=== PATIENT | female | born 1975 | race African-American/Black ===

== ENCOUNTER 2021-05-05 16:36 | Inpatient (IN) | payer MEDICAID ==
[~2021-05-05] VITALS: Ht 170.2 cm; Wt 149.7 kg
[~2021-05-05 16:36] MED LIST: ativan; motrin
[2021-05-05] MEDS ORDERED: MAGNESIUM/ALUMINUM HYDROXIDE/SIMETHICONE 30ML UDC PO STA (19:12)
[2021-05-05] MEDS ORDERED: VISCOUS LIDOCAINE 2% 15 ML UDC PO STA (19:12)
[2021-05-05] MEDS ORDERED: ONDANSETRON HCL 4MG/2ML INJ IV STA (19:12)
[2021-05-05] MEDS ORDERED: SODIUM CHLORIDE 0.9% 1,000 ML IV ONE (19:15)
[2021-05-05 19:26] LABS: CLARITY URINE CLOUDY (CLEAR); COLOR URINE YELLOW (YELLOW); KETONES URINE TRACE (NEGATIVE); LEUKOCYTE ESTERASE URINE 3+ (NEGATIVE); NITRITE URINE NEGATIVE (NEGATIVE); OCCULT BLOOD URINE TRACE (NEGATIVE); PROTEIN URINE TRACE (NEGATIVE); SPECIFIC GRAVITY URINE 1.019 (1.005-1.030); UROBILINOGEN URINE 0.2 E.U./dL (0.2-1.0)
[2021-05-05] MEDS ORDERED: ONDANSETRON 4MG ODT PO ONE (20:00)
[2021-05-05 20:06] LABS: BASOPHILS % 0.2 % (0.0-2.0); EOSINOPHILS % 2.3 % (0.0-5.0); HEMATOCRIT. 35.4 % (36.0-48.0); HEMOGLOBIN. 11.7 g/dL (12.0-16.0); LYMPHOCYTES % 15.3 % (20.0-50.0); MEAN CORPUSCULAR HEMOGLOBIN 30.3 pg (28.0-32.0); MEAN CORPUSCULAR VOLUME 91.7 fL (81.0-99.0); MEAN PLATELET VOLUME 7.2 fl (7.4-10.4); MONOCYTES % 5.9 % (2.0-8.0); NEUTROPHILS % 76.3 % (40.0-76.0); PLATELET 216 x1000/uL (130-400); RED BLOOD CELL COUNT 3.86 mill/uL (4.2-5.4); RED CELL DISTRIBUTION WIDTH 15.2 % (11.6-14.6)
[2021-05-05 20:14] LABS: CHLORIDE 105 mEq/L (98-107)
[2021-05-05] MEDS ORDERED: KETOROLAC 15MG/ML VIAL IM NR (20:30)
[2021-05-05] MEDS ORDERED: CEFTRIAXONE 2 G PREMIX 50 ML IV NR (21:00)
[2021-05-06] MEDS ORDERED: MORPHINE SULFATE 4 MG/ML CPJ (NOT FOR IM USE) IV ONE
[2021-05-06] MEDS ORDERED: HYDROCODONE/ACETAMINOPHEN 5/325MG TABLET PO ONE (00:45)
[2021-05-06] MEDS ORDERED: NALOXONE HCL 0.4MG/ML VIAL IV PRN (02:45)
[2021-05-06] MEDS ORDERED: DIPHENHYDRAMINE 50MG/ML VIAL IV PRN (02:45)
[2021-05-06] MEDS ORDERED: KETOROLAC 15MG/ML VIAL IV PRN (02:45)
[2021-05-06] MEDS ORDERED: LORAZEPAM 2MG/ML CPJ IV PRN (02:45)
[2021-05-06 05:38] VITALS: BP 147/87
[2021-05-06 05:46] VITALS: BP 147/87
[2021-05-06] MEDS ORDERED: DEXT 5%/0.45% NACL KCL 20MEQ/L 1,000 ML IV SCH (06:00)
[2021-05-06] MEDS ORDERED: DEXTROSE 50% WATER 50ML SYRINGE IV PRN (06:00)
[2021-05-06] MEDS ORDERED: FOLIC ACID 1 MG, THIAMINE HCL 100 MG, MVI, ADULT NO.1 10 ML in DEXTROSE 5% WATER 1,000 ML IV ONE (06:00)
[2021-05-06] MEDS: BLOOD SUGAR DIAGNOSTIC STRIP TEST SCH ×4 (06:54→21:00)
[2021-05-06] MEDS: INSULIN LISPRO 100 UNITS/ML SUBCUT SCH ×4 (06:54→21:37)
[2021-05-06] MEDS ORDERED: METF-414 PO (07:08)
[2021-05-06] MEDS ORDERED: ACYC200C31 PO (07:08)
[2021-05-06] MEDS ORDERED: METO-385 PO (07:08)
[2021-05-06] MEDS ORDERED: LURA40TA PO (07:08)
[2021-05-06] MEDS ORDERED: FURO40TA5 MT (07:08)
[2021-05-06] MEDS ORDERED: GABA-290 MT (07:08)
[2021-05-06] MEDS ORDERED: HYDR25TA MT (07:08)
[2021-05-06] MEDS ORDERED: DIPH-1042 PO (07:08)
[2021-05-06] MEDS ORDERED: ATOR20TA65 MT (07:08)
[2021-05-06] MEDS ORDERED: MONT10TA32 MT (07:08)
[2021-05-06] MEDS ORDERED: NAPR500T7 MT (07:08)
[2021-05-06] MEDS ORDERED: FOLIC ACID 1 MG, THIAMINE HCL 100 MG, MVI, ADULT NO.1 10 ML in DEXTROSE 5% WATER 1,000 ML IV SCH (07:30)
[2021-05-06 08:00] VITALS: BP 138/78
[2021-05-06] MEDS: PANTOPRAZOLE SODIUM 40 MG/VIAL IV SCH (09:00)
[2021-05-06] MEDS ORDERED: ONDANSETRON HCL 4MG/2ML INJ IV PRN (10:15)
[2021-05-06 12:00] VITALS: BP 137/76
[2021-05-06 12:18] LABS: BASOPHILS % 0.3 % (0.0-2.0); EOSINOPHILS % 3.1 % (0.0-5.0); HEMATOCRIT. 36.6 % (36.0-48.0); LYMPHOCYTES % 18.8 % (20.0-50.0); MEAN CORPUSCULAR VOLUME 91.8 fL (81.0-99.0); MEAN PLATELET VOLUME 7.5 fl (7.4-10.4); MONOCYTES % 6.2 % (2.0-8.0); NEUTROPHILS % 71.6 % (40.0-76.0); PLATELET 205 x1000/uL (130-400); RED BLOOD CELL COUNT 3.99 mill/uL (4.2-5.4); RED CELL DISTRIBUTION WIDTH 14.7 % (11.6-14.6)
[2021-05-06 12:26] LABS: CHLORIDE 104 mEq/L (98-107)
[2021-05-06 12:34] LABS: LDL CHOLESTEROL 87 mg/dL (5-100)
[2021-05-06 12:36] LABS: HDL CHOLESTEROL 49 mg/dL (40-59)
[2021-05-06] MEDS ORDERED: LEVO500T89 MT (15:28)
[2021-05-06] MEDS ORDERED: THIA100T88 MT (15:28)
[2021-05-06 16:00] VITALS: BP 142/81
[2021-05-06] MEDS: MONTELUKAST SODIUM 10MG TABLET PO SCH (16:51)
[2021-05-06] MEDS: METFORMIN HCL 500MG TABLET PO SCH (16:52)
[2021-05-06] MEDS: THIAMINE HCL 100MG TABLET PO SCH (16:52)
[2021-05-06] MEDS: METOPROLOL TARTRATE 25MG TABLET PO SCH (16:53)
[2021-05-06] MEDS: GABAPENTIN 300MG CAPSULE PO SCH (16:54)
[2021-05-06] MEDS: HYDROCHLOROTHIAZIDE 25MG TABLET PO SCH (16:56)
[2021-05-06] MEDS ORDERED: FUROSEMIDE 40MG TABLET PO SCH (17:00)
[2021-05-06] MEDS: HYDROCODONE/ACETAMINOPHEN 10/325MG TABLET PO PRN (17:05)
[2021-05-06] MEDS: ACYCLOVIR 200MG CAPSULE PO SCH (19:01)
[2021-05-06] MEDS: NAPROXEN 250MG TABLET PO SCH (19:01)
[2021-05-06 20:00] VITALS: BP 126/69
[2021-05-06] MEDS: CEFTRIAXONE 1,000 MG in DEXTROSE 5% WATER 50 ML IV SCH (22:00)
[2021-05-07] VITALS: BP 151/78
[2021-05-07 04:00] VITALS: BP 129/72
[2021-05-07] MEDS: HYDROCODONE/ACETAMINOPHEN 10/325MG TABLET PO PRN ×2 (06:09→16:14)
[2021-05-07] MEDS: BLOOD SUGAR DIAGNOSTIC STRIP TEST SCH ×4 (07:20→21:00)
[2021-05-07] MEDS: INSULIN LISPRO 100 UNITS/ML SUBCUT SCH ×4 (07:50→21:00)
[2021-05-07 08:00] VITALS: BP 145/76
[2021-05-07] MEDS: HYDROCHLOROTHIAZIDE 25MG TABLET PO SCH ×2 (09:00→09:52)
[2021-05-07] MEDS: PANTOPRAZOLE SODIUM 40 MG/VIAL IV SCH (09:00)
[2021-05-07] MEDS ORDERED: ATORVASTATIN CALCIUM 20MG TABLET PO SCH (09:00)
[2021-05-07] MEDS: THIAMINE HCL 100MG TABLET PO SCH (09:39)
[2021-05-07] MEDS: METFORMIN HCL 500MG TABLET PO SCH ×2 (09:40→18:17)
[2021-05-07] MEDS: NAPROXEN 250MG TABLET PO SCH ×2 (09:40→18:17)
[2021-05-07] MEDS: GABAPENTIN 300MG CAPSULE PO SCH ×2 (09:41→18:16)
[2021-05-07] MEDS: METOPROLOL TARTRATE 25MG TABLET PO SCH ×2 (09:41→21:56)
[2021-05-07] MEDS: DIPHENHYDRAMINE 25MG CAPSULE PO SCH (09:41)
[2021-05-07] MEDS: ACYCLOVIR 200MG CAPSULE PO SCH ×2 (09:46→18:17)
[2021-05-07 12:00] VITALS: BP 138/83
[2021-05-07 16:00] VITALS: BP 126/61
[2021-05-07] MEDS: MONTELUKAST SODIUM 10MG TABLET PO SCH (18:17)
[2021-05-07 20:00] VITALS: BP 127/80
[2021-05-07] MEDS ORDERED: DIPHENHYDRAMINE 50MG CAPSULE PO PRN (20:00)
[2021-05-07] MEDS: FAMOTIDINE 20MG TABLET PO SCH (21:55)
[2021-05-07] MEDS: CEFTRIAXONE 1,000 MG in DEXTROSE 5% WATER 50 ML IV SCH (21:57)
[2021-05-08] VITALS: BP 123/79
[2021-05-08] MEDS: HYDROCODONE/ACETAMINOPHEN 10/325MG TABLET PO PRN ×2 (00:03→22:12)
[2021-05-08 04:00] VITALS: BP 135/82
[2021-05-08] MEDS: BLOOD SUGAR DIAGNOSTIC STRIP TEST SCH ×4 (07:02→20:41)
[2021-05-08] MEDS: INSULIN LISPRO 100 UNITS/ML SUBCUT SCH ×4 (07:50→20:57)
[2021-05-08 08:00] VITALS: BP 125/68
[2021-05-08] MEDS: HYDROCHLOROTHIAZIDE 25MG TABLET PO SCH (08:47)
[2021-05-08] MEDS: GABAPENTIN 300MG CAPSULE PO SCH ×2 (08:47→18:00)
[2021-05-08] MEDS: METFORMIN HCL 500MG TABLET PO SCH ×2 (08:47→18:00)
[2021-05-08] MEDS: THIAMINE HCL 100MG TABLET PO SCH (08:47)
[2021-05-08] MEDS: FAMOTIDINE 20MG TABLET PO SCH ×2 (08:48→20:56)
[2021-05-08] MEDS: ACYCLOVIR 200MG CAPSULE PO SCH ×2 (08:48→18:01)
[2021-05-08] MEDS: METOPROLOL TARTRATE 25MG TABLET PO SCH ×2 (08:48→20:55)
[2021-05-08] MEDS: NAPROXEN 250MG TABLET PO SCH ×2 (08:48→18:05)
[2021-05-08] MEDS: DIPHENHYDRAMINE 25MG CAPSULE PO SCH (08:48)
[2021-05-08] MEDS: LACTULOSE 20G/30ML UDC PO SCH ×2 (10:00→10:06)
[2021-05-08] MEDS: DULOXETINE HCL 60MG DR CAPSULE PO SCH ×2 (10:06→20:55)
[2021-05-08] MEDS ORDERED: LORAZEPAM 2MG/ML CPJ IM PRN (10:15)
[2021-05-08 12:00] VITALS: BP 134/61
[2021-05-08] MEDS ORDERED: BISACODYL 10MG SUPP PR NR (12:00)
[2021-05-08 16:00] VITALS: BP 146/82
[2021-05-08] MEDS: MONTELUKAST SODIUM 10MG TABLET PO SCH (18:00)
[2021-05-08 20:00] VITALS: BP 127/78
[2021-05-08] MEDS ORDERED: ATORVASTATIN CALCIUM 20MG TABLET PO SCH (21:00)
[2021-05-08] MEDS: CEFTRIAXONE 1,000 MG in DEXTROSE 5% WATER 50 ML IV SCH (22:00)
[2021-05-09] VITALS: BP 118/70
[2021-05-09 04:00] VITALS: BP 136/52
[2021-05-09] MEDS: INSULIN LISPRO 100 UNITS/ML SUBCUT SCH ×2 (06:55→12:27)
[2021-05-09] MEDS: BLOOD SUGAR DIAGNOSTIC STRIP TEST SCH ×2 (06:55→12:20)
[2021-05-09 08:00] VITALS: BP 122/55
[2021-05-09] MEDS: DIPHENHYDRAMINE 25MG CAPSULE PO SCH (09:11)
[2021-05-09] MEDS: GABAPENTIN 300MG CAPSULE PO SCH (09:11)
[2021-05-09] MEDS: NAPROXEN 250MG TABLET PO SCH (09:12)
[2021-05-09] MEDS: THIAMINE HCL 100MG TABLET PO SCH (09:12)
[2021-05-09] MEDS: METFORMIN HCL 500MG TABLET PO SCH (09:12)
[2021-05-09] MEDS: FAMOTIDINE 20MG TABLET PO SCH (09:12)
[2021-05-09] MEDS: METOPROLOL TARTRATE 25MG TABLET PO SCH (09:12)
[2021-05-09] MEDS: DULOXETINE HCL 60MG DR CAPSULE PO SCH (09:12)
[2021-05-09] MEDS: HYDROCHLOROTHIAZIDE 25MG TABLET PO SCH (09:12)
[2021-05-09] MEDS: ACYCLOVIR 200MG CAPSULE PO SCH (09:13)
[2021-05-09] MEDS: HYDROCODONE/ACETAMINOPHEN 10/325MG TABLET PO PRN (09:24)
[2021-05-09 12:00] VITALS: BP 145/76
== END 2021-05-09 16:32 | disposition home or self-care (01) | DRG 282 ==
LOC: ER 16:36 → MICUSO 05-06 01:18 → 6EST 05-06 03:52
PROVIDERS: ADMIT Internal Medicine; ATTEND Internal Medicine
DX: K85.90 Acute pancreatitis without necrosis or infection, unspecified (principal); I11.0 Hypertensive heart disease with heart failure; I50.42 Chronic combined systolic (congestive) and diastolic (congestive) heart failure; Z68.43 Body mass index [BMI] 50.0-59.9, adult; N39.0 Urinary tract infection, site not specified; E11.9 Type 2 diabetes mellitus without complications; E66.9 Obesity, unspecified; F10.10 Alcohol abuse, uncomplicated; K76.9 Liver disease, unspecified; Y90.9 Presence of alcohol in blood, level not specified; F17.210 Nicotine dependence, cigarettes, uncomplicated; J45.909 Unspecified asthma, uncomplicated; M19.90 Unspecified osteoarthritis, unspecified site; K59.00 Constipation, unspecified; K21.9 Gastro-esophageal reflux disease without esophagitis; Z91.018 Allergy to other foods; Z91.048 Other nonmedicinal substance allergy status; Z71.41 Alcohol abuse counseling and surveillance of alcoholic; Z71.3 Dietary counseling and surveillance; Z91.013 Allergy to seafood
CPT/HCPCS: 36415; 74018; 76700; 76705; 80048; 80053; 80061; 81003; 82962; 83036; 85025; 87077; 87186; 99285; C9113; J0696; J1200; J1815; J1885; J2060; J2270; J2405; J3411; J3490; J7030; J7060; J7070; Q0162; Q0163

== ENCOUNTER 2023-09-10 10:43 | Emergency (ER) | payer MEDICAID ==
[~2023-09-10] VITALS: Ht 167.6 cm; Wt 158.0 kg
[~2023-09-10 10:43] MED LIST changes: +ACYC200C31 PO; +ATOR20TA65 MT; +DIPH-1205 PO; +FURO40TA5 MT; +GABA-290 MT; +HYDR25TA MT; +LEVO-65 MT; +LURA40TA2 PO; +METF-414 PO; +METO-385 PO; +MONT-39 MT; +NAPR500T7 MT; +T3 PO; +THIA100T88 MT
[2023-09-10 10:46] VITALS: O2SAT 100
[2023-09-10 13:57] VITALS: BP 180/82; PULSE 98; RESP 20; TEMP 98.4
== END 2023-09-10 14:02 | disposition home or self-care (01) ==
LOC: ER 10:43
DX: F15.90 Other stimulant use, unspecified, uncomplicated (principal); J45.909 Unspecified asthma, uncomplicated; E11.9 Type 2 diabetes mellitus without complications; I10 Essential (primary) hypertension; F12.90 Cannabis use, unspecified, uncomplicated; Z91.018 Allergy to other foods
CPT/HCPCS: 71045; 93005; 99283

== ENCOUNTER 2023-11-15 22:50 | Emergency (ER) | payer MEDICAID ==
[~2023-11-15] VITALS: Ht 167.6 cm; Wt 113.0 kg
[2023-11-15 22:54] VITALS: BP 160/83; PULSE 101; RESP 22; TEMP 98.6; O2SAT 94
[2023-11-15] MEDS ORDERED: HYDR-459 MT (23:17)
[2023-11-15] MEDS: LORAZEPAM 0.5MG TABLET PO ONE (23:31)
== END 2023-11-15 23:33 | disposition home or self-care (01) ==
LOC: ER 22:50
DX: F41.9 Anxiety disorder, unspecified (principal); I10 Essential (primary) hypertension; J45.909 Unspecified asthma, uncomplicated; E11.9 Type 2 diabetes mellitus without complications; F12.10 Cannabis abuse, uncomplicated; F15.10 Other stimulant abuse, uncomplicated; Z79.899 Other long term (current) drug therapy
CPT/HCPCS: 99283

== ENCOUNTER 2025-02-24 13:20 | Emergency (ER) | payer MEDICAID ==
[~2025-02-24] VITALS: Ht 170.2 cm; Wt 158.0 kg
[~2025-02-24 13:20] MED LIST changes: +HYDR-459 MT; +NAPR-1486 MT; -NAPR500T7 MT
[2025-02-24 13:27] VITALS: O2SAT 95
[2025-02-24 15:24] LABS: CLARITY URINE CLEAR (CLEAR); COLOR URINE YELLOW (YELLOW); GLUCOSE URINE NEGATIVE (NEGATIVE); KETONES URINE TRACE (NEGATIVE); LEUKOCYTE ESTERASE URINE NEGATIVE (NEGATIVE); NITRITE URINE NEGATIVE (NEGATIVE); OCCULT BLOOD URINE NEGATIVE (NEGATIVE); PH URINE 7.0 (4.5-8.0); PROTEIN URINE TRACE (NEGATIVE); SPECIFIC GRAVITY URINE 1.028 (1.005-1.030); UROBILINOGEN URINE 1.0 E.U./dL (0.2-1.0)
[2025-02-24 15:53] LABS: BASOPHILS % 0.3 % (0.0-2.0); EOSINOPHILS % 0.2 % (0.0-5.0); HEMATOCRIT. 37.0 % (36.0-48.0); HEMOGLOBIN. 12.0 g/dL (12.0-16.0); LYMPHOCYTES % 17.8 % (20.0-50.0); MEAN PLATELET VOLUME 8.3 fl (7.4-10.4); MONOCYTES % 8.5 % (2.0-8.0); NEUTROPHILS % 73.2 % (40.0-76.0); PLATELET 171 x1000/uL (130-400); RED BLOOD CELL COUNT 4.01 mill/uL (4.2-5.4); RED CELL DISTRIBUTION WIDTH 15.1 % (11.6-14.6)
[2025-02-24] MEDS ORDERED: AZITHROMYCIN 500MG/250ML 250 ML IV STA (15:55)
[2025-02-24 15:57] LABS: INFLUENZA TYPE A Presumptive Negative (Pres. Neg.)
[2025-02-24 15:57] LABS: INR 0.9
[2025-02-24 15:58] LABS: INFLUENZA TYPE B Presumptive Negative (Pres. Neg.)
[2025-02-24] MEDS: CEFTRIAXONE 1GM/50ML 50 ML IV ONE (16:00)
[2025-02-24] MEDS: AZITHROMYCIN 500MG/250ML 250 ML IV SCH (16:00)
[2025-02-24 16:03] LABS: CREATININE 0.7 mg/dL (0.6-1.0); TROPONIN I HIGH SENSITIVITY < 4 ng/L (3.0-34); UREA NITROGEN BLOOD 9 mg/dL (9-23)
[2025-02-24 16:04] LABS: HCG SCREEN NEGATIVE
[2025-02-24 16:05] LABS: ASPARTATE AMINOTRANSFERASE 20 IU/L (<34); BILIRUBIN DIRECT 0.1 mg/dL (<=3.0); BILIRUBIN TOTAL 0.4 mg/dL (0.1-1.0); PROTEIN TOTAL 7.0 g/dL (6.0-8.3)
[2025-02-24 16:07] LABS: BACTERIA URINE NONE SEEN; MUCUS URINE TRACE /lpf (< = 2+); RBC URINE NONE SEEN /hpf (0-2); SQUAMOUS EPITHELIAL CELL URINE FEW /lpf (RARE/1+); WBC URINE 0-2 /hpf (0-2)
[2025-02-24 17:13] VITALS: BP 105/57
[2025-02-24] MEDS ORDERED: AZIT500T8 MT (17:29)
[2025-02-24] MEDS ORDERED: AM250 MT (17:29)
[2025-02-24] MEDS ORDERED: ACET-2708 MT (17:32)
[2025-02-24] MEDS ORDERED: BENZ100C86 MT (17:32)
[2025-02-24 17:57] VITALS: PULSE 78; RESP 14; TEMP 37; O2SAT 97
== END 2025-02-24 17:57 | disposition home or self-care (01) ==
LOC: ER 13:20 → CMPBEDREQ 18:45
DX: U07.1 COVID-19 (principal); J12.82 Pneumonia due to coronavirus disease 2019; F41.9 Anxiety disorder, unspecified; I10 Essential (primary) hypertension; J44.0 Chronic obstructive pulmonary disease with (acute) lower respiratory infection; E11.9 Type 2 diabetes mellitus without complications; Z79.899 Other long term (current) drug therapy; Z88.1 Allergy status to other antibiotic agents; Z98.890 Other specified postprocedural states
CPT/HCPCS: 36415; 71045; 80048; 80076; 81003; 81025; 83735; 83880; 84484; 84703; 85025; 85379; 87426; 87804; 93005; 99285; J0456

== ENCOUNTER 2025-06-07 19:45 | Emergency (ER) | payer MEDICAID ==
[~2025-06-07] VITALS: Ht 170.2 cm; Wt 141.0 kg
[~2025-06-07 19:45] MED LIST changes: +ACET-2708 MT; +ACYC-58 PO; -ACYC200C31 PO; +AM250 MT; +AZIT500T8 MT; +BENZ100C86 MT
[2025-06-07 19:46] VITALS: TEMP 98.7; O2SAT 100
[2025-06-07] MEDS: METOPROLOL TARTRATE 5MG/5ML VIAL IV ONE ×2 (21:07→22:04)
[2025-06-07 21:27] LABS: BASOPHILS % 1.4 % (0.0-2.0); EOSINOPHILS % 1.3 % (0.0-5.0); HEMATOCRIT. 44.0 % (36.0-48.0); HEMOGLOBIN. 14.2 g/dL (12.0-16.0); LYMPHOCYTES % 27.6 % (20.0-50.0); MEAN PLATELET VOLUME 8.1 fl (7.4-10.4); MONOCYTES % 6.4 % (2.0-8.0); NEUTROPHILS % 63.3 % (40.0-76.0); PLATELET 209 x1000/uL (130-400); RED BLOOD CELL COUNT 4.81 mill/uL (4.2-5.4); RED CELL DISTRIBUTION WIDTH 14.8 % (11.6-14.6)
[2025-06-07 21:35] LABS: *AMPHETAMINES SCREEN URINE NEGATIVE (NEGATIVE); *BARBITURATES SCREEN URINE NEGATIVE (NEGATIVE); *BENZODIAZEPINES SCREEN URINE NEGATIVE (NEGATIVE); *COCAINE SCREEN URINE PRESUMPTIVE POSITIVE (NEGATIVE); CANNABINOID URINE SCREEN NEGATIVE (NEGATIVE); ECSTASY MDMA SCREEN URINE NEGATIVE (NEGATIVE); METHADONE URINE SCREEN NEGATIVE (NEGATIVE); OPIATES URINE SCREEN NEGATIVE (NEGATIVE); PHENCYCLIDINE URINE SCREEN NEGATIVE (NEGATIVE)
[2025-06-07 21:43] LABS: CREATININE 0.6 mg/dL (0.6-1.0); UREA NITROGEN BLOOD 9 mg/dL (9-23)
[2025-06-07 21:45] LABS: ASPARTATE AMINOTRANSFERASE 20 IU/L (<34); BILIRUBIN DIRECT < 0.1 mg/dL (<=3.0); BILIRUBIN TOTAL 0.2 mg/dL (0.1-1.0); PROTEIN TOTAL 7.7 g/dL (6.0-8.3)
[2025-06-07 21:49] LABS: T4 FREE 1.20 ng/dL (0.89-1.76)
[2025-06-07 21:52] LABS: HCG SCREEN NEGATIVE
[2025-06-07] MEDS: LORAZEPAM 2MG/ML UD SYRINGE IV SCH (22:04)
[2025-06-08 00:24] VITALS: BP 127/86; PULSE 103; RESP 16; O2SAT 98
== END 2025-06-08 01:08 | disposition short-term general hospital (02) ==
LOC: ER 19:45 → EDBEDREQTM 22:07 → EDBEDREQ 22:07 → ER 06-08 01:08 → CMPBEDREQ 06-09 07:55
DX: I48.91 Unspecified atrial fibrillation (principal); F14.90 Cocaine use, unspecified, uncomplicated; F12.90 Cannabis use, unspecified, uncomplicated; F17.200 Nicotine dependence, unspecified, uncomplicated; F19.10 Other psychoactive substance abuse, uncomplicated; I10 Essential (primary) hypertension; J44.89 Other specified chronic obstructive pulmonary disease; M79.7 Fibromyalgia; M19.90 Unspecified osteoarthritis, unspecified site; E11.9 Type 2 diabetes mellitus without complications; Z79.1 Long term (current) use of non-steroidal anti-inflammatories (NSAID); Z79.899 Other long term (current) drug therapy; Z79.84 Long term (current) use of oral hypoglycemic drugs; Z79.624 Long term (current) use of inhibitors of nucleotide synthesis; Z91.013 Allergy to seafood; Z88.1 Allergy status to other antibiotic agents
CPT/HCPCS: 80076; 80305; 80048; 84703; 83880; 84439; 83735; 84443; 85025; 36415; 71045; 96374; 96375; 99291; J2060; J3490; Z7610; A4606